=== PATIENT | male | born 1950 | race Caucasian/White ===

== ENCOUNTER 2018-01-25 13:53 | Emergency (ER) | payer MEDICARE ==
[~2018-01-25] VITALS: Ht 188 cm; Wt 113.5 kg
[2018-01-25] MEDS ORDERED: DIPHTH/TETANUS/ACEL. PERTUSSIS 0.5 ML SYR IM ONE (14:15)
[2018-01-25] MEDS ORDERED: ACETAMINOPHEN 325 MG TAB PO ONE (14:15)
== END 2018-01-25 15:03 | disposition home or self-care (01) ==
LOC: FSED 13:53
DX: S20.212A Contusion of left front wall of thorax, initial encounter (principal); W01.198A Fall on same level from slipping, tripping and stumbling with subsequent striking against other object, initial encounter; Y93.01 Activity, walking, marching and hiking; Y92.008 Other place in unspecified non-institutional (private) residence as the place of occurrence of the external cause; I10 Essential (primary) hypertension; I25.10 Atherosclerotic heart disease of native coronary artery without angina pectoris; H91.3 Deaf nonspeaking, not elsewhere classified; E78.5 Hyperlipidemia, unspecified; F32.9 Major depressive disorder, single episode, unspecified
CPT/HCPCS: 71101; 90471; 99284

== ENCOUNTER 2018-04-06 14:05 | Emergency (ER) | payer MEDICARE ==
[~2018-04-06] VITALS: Ht 188 cm; Wt 113.4 kg
--- OUTSIDE RECORDS SUMMARY | 2018-04-06 14:07 | XMS REPORT | Clinical Summary ---
Author Author [facility] Address Unknown Phone Unavailable Care Team Providers Care Agile Java Developer Name Role Phone PCP Unavailable Allergies No Known Allergies Current Medications Prescription Sig. Disp. Refills Start End Date Status Date predniSONE (DELTASONE) 50 Take 50 mg by mouth Active MG tablet daily. HYDROcodone-acetaminophen Take 1 tablet by mouth Active (NORCO 7.5-325) 7.5-325 every 6 (six) hours as mg per tablet needed for Pain. sertraline (ZOLOFT) 100 Take 200 mg by mouth Active MG tablet daily. omeprazole (PRILOSEC) 20 Take 40 mg by mouth Active MG capsule daily. aspirin 81 MG EC tablet Take 81 mg by mouth Active daily. omega-3 fatty acids-fish Take 2 g by mouth daily. Active oil 340-1,000 mg Cap per capsule Active Problems Not on file Social History Tobacco Use Types Packs/Day Years Used Date Former Smoker Alcohol Use Drinks/Week oz/Week Comments No Sex Assigned at Date Recorded Not on file Last Filed Vital Signs Not on file Plan of Treatment Not on file Results Not on fileafter 04/05/2017
--- OUTSIDE RECORDS SUMMARY | 2018-04-06 14:07 | XMS REPORT | Continuity of Care Document ---
Author Author [facility] Organization [facility] Address [address] [place] [address] Phone Unavailable Care Team Providers Care Recoil Spring Winder Name Role Phone NONSTAFF PCP Unavailable Advance Directives Directive Response Recorded Date/Time Does the patient have an advance directive? No 01/25/18 2:44pm If yes, is advance directive on file with [facility]? No 01/25/18 2:44pm If not on file with [facility] will patient provide a copy? No 01/25/18 2:44pm Do you have a Directive to Physician? No 01/25/18 2:44pm Do you have a Medical Power of Wire Stripper? No 01/25/18 2:44pm Do you have an out of hospital Do Not Resuscitate Order? No 01/25/18 2:44pm Do you have any special needs we should be aware of? No 01/25/18 2:44pm Do you have a support person here with you today? Yes 01/25/18 2:44pm Did patient receive Notice of Privacy Practices? Yes 01/25/18 2:44pm Did patient receive patient rights and responsibilities? Yes 01/25/18 2:44pm Problems No problem information available. Medications Unable to obtain medications. Social History No social history information available. Hospital Discharge Instructions No hospital discharge instruction information available. Plan of Care Discharge Date 01/25/18 3:03pm Disposition HOME, SELF-CARE Condition at Discharge Stable Instructions/Education Provided Fall Prevention RICE Therapy Prescriptions See Medication Section Referrals June Cui Additional Instructions/Education Return to the closest emergency room if you have trouble breathing. Take medication as prescribed. Fill your prescription immediately after leaving the ER. Do not drive or operate any heavy machinery while taking your pain medicine. Ice your rib for 20 minutes every 2 hours, while awake. Cough and deep breathe at least 10 times an hour while awake. Do this even if it is painful. Support the area with a pillow or your hand. This will help with the pain. Follow up with your doctor tomorrow. Functional Status No functional status information available. Allergies, Adverse Reactions, Alerts No known allergies. Immunizations No immunization information available. Vital Signs Acute Vital Signs Vital Response Date/Time Height 6 ft 2 in 01/25/2018 2:06pm Weight 250.25 lb 01/25/2018 2:06pm Body Mass Index 32.1 kg/m^2 01/25/2018 2:06pm Results No relevant diagnostic test, laboratory data and/or discharge summary information available. Procedures No procedure information available. Encounters Encounter Location Arrival/Admit Date Discharge/Depart Date Attending Provider Departed Emergency Room [facility] 01/25/18 1:53pm 3:03pm CARINA ROSA MD
[2018-04-06] MEDS ORDERED: HYDROCODONE/APAP 5MG-325MG TAB PO ONE (14:30)
[2018-04-06] MEDS ORDERED: TETANUS/DIPHTHERIA TOX ADULT 0.5 ML SYR IM ONE (14:30)
== END 2018-04-06 15:55 | disposition home or self-care (01) ==
LOC: FSED 14:05
DX: S61.411A Laceration without foreign body of right hand, initial encounter (principal); S46.811A Strain of other muscles, fascia and tendons at shoulder and upper arm level, right arm, initial encounter; W18.30XA Fall on same level, unspecified, initial encounter; Y93.89 Activity, other specified; Y92.008 Other place in unspecified non-institutional (private) residence as the place of occurrence of the external cause
CPT/HCPCS: 90471; 90714; 99284

== ENCOUNTER 2018-04-08 15:11 | Emergency (ER) | payer MEDICARE ==
[~2018-04-08] VITALS: Ht 188 cm; Wt 113.4 kg
--- OUTSIDE RECORDS SUMMARY | 2018-04-08 15:13 | XMS REPORT | Continuity of Care Document ---
Author Author [facility] Organization [facility] Address [address] [place] [place] [address] Phone Unavailable Care Team Providers Care Home Appliance Tech Name Role Phone NONSTAFF PCP Unavailable Insurance Providers Guarantor Rivera Rdz Address [address] [place] [address] Email NONE Payer [employer] Policy Number [id number] Subscriber's Name Rivera Rdz Relationship 18 Self / Same As Patient Group Name RETIRED Advance Directives Directive Response Recorded Date/Time Does the patient have an advance directive? No 01/25/18 2:44pm If yes, is advance directive on file with [facility]? No 01/25/18 2:44pm If not on file with [facility] will patient provide a copy? No 01/25/18 2:44pm Problems No problem information available. Medications Unable to obtain medications. Social History No social history information available. Hospital Discharge Instructions No hospital discharge instruction information available. Plan of Care Discharge Date 04/06/18 3:55pm Disposition HOME, SELF-CARE Condition at Discharge Stable Instructions/Education Provided Laceration Fall Prevention Sprains Wound Care (General) Forms Provided Work/School Excuse Prescriptions See Medication Section Referrals YOUR PRIMARY DOCTOR YOUNG FRIAS MD Address: [address] [place] [address] [address] [place] [address] Additional Instructions/Education CLINICAL IMPRESSION Single deep laceration to the right hand. No laceration with foreign body present. Muscle strain of the right trapezius at the shoulder. DISCHARGE INSTRUCTIONS Protect wound and keep wound area clean. Change dressing daily. Keep wounds dry. Sutures should be removed in seven days. Prescription Medications: Tylenol with Codeine Tylenol #3 (30 mg / 300 mg) : take 1-2 tablets orally every 4 hours. Dispense fifteen (15). No refill. Substitution is permissible. Bactrim DS 800 mg / 160 mg: take 1 tablet orally every 12 hours for 7 days. No refill. Substitution is permissible. Functional Status No functional status information available. Allergies, Adverse Reactions, Alerts No known allergies. Immunizations No immunization information available. Vital Signs Acute Vital Signs Vital Response Date/Time Height 6 ft 2 in 04/06/2018 2:08pm Weight 250 lb 04/06/2018 2:08pm Body Mass Index 32.1 kg/m^2 04/06/2018 2:08pm Results No relevant diagnostic test, laboratory data and/or discharge summary information available. Procedures Procedure Status Date Provider(s) TD VACC NO PRESV 7 YRS+ IM Completed 01/25/18 CARINA ROSA MD Encounters Encounter Location Arrival/Admit Date Discharge/Depart Date Attending Provider Departed Emergency Room [facility] 04/06/18 2:05pm 3:55pm NIK SCHMIDT MD Departed Emergency Room [facility] 01/25/18 1:53pm 3:03pm CARINA ROSA MD
--- OUTSIDE RECORDS SUMMARY | 2018-04-08 15:13 | XMS REPORT | Clinical Summary ---
Author Author [facility] Address Unknown Phone Unavailable Care Team Providers Care Incident Manager Name Role Phone PCP Unavailable Allergies No [...] Not on file Results Not on fileafter 04/07/2017
[2018-04-08] MEDS ORDERED: OMEPRAZOLE20 MG (15:35)
[2018-04-08] MEDS ORDERED: LASIX20 MG PO (15:35)
[2018-04-08] MEDS ORDERED: UNK ANTIDEPRESSANT (15:35)
[2018-04-08] MEDS ORDERED: FERROUS SULFAT324 MG (15:35)
[2018-04-08] MEDS ORDERED: TYLENOL WITH C1 EACH PO (15:35)
[2018-04-08] MEDS ORDERED: DIPHENHYDRAMINE HCL INJ 50 MG/ML VIAL IM ONE (16:00)
[2018-04-09] MEDS ORDERED: BACITRACIN ZINC 15 GM OINT TOP SCH (09:00)
== END 2018-04-08 16:29 | disposition home or self-care (01) ==
LOC: FSED 15:11
DX: L29.9 Pruritus, unspecified (principal); I10 Essential (primary) hypertension; E78.5 Hyperlipidemia, unspecified; I25.10 Atherosclerotic heart disease of native coronary artery without angina pectoris; H91.93 Unspecified hearing loss, bilateral; I25.2 Old myocardial infarction; K21.9 Gastro-esophageal reflux disease without esophagitis; F32.9 Major depressive disorder, single episode, unspecified; Z95.5 Presence of coronary angioplasty implant and graft; Z98.84 Bariatric surgery status; Z96.21 Cochlear implant status
CPT/HCPCS: 99283; J1200

== ENCOUNTER 2018-04-13 11:47 | Emergency (ER) | payer MEDICARE ==
[~2018-04-13] VITALS: Ht 188 cm; Wt 115.7 kg
[~2018-04-13 11:47] MED LIST: FERROUS SULFAT324 MG; LASIX20 MG PO; OMEPRAZOLE20 MG; TYLENOL WITH C1 EACH PO; UNK ANTIDEPRESSANT
== END 2018-04-13 12:30 | disposition home or self-care (01) ==
LOC: FSED 11:47
DX: Z48.02 Encounter for removal of sutures (principal); B37.2 Candidiasis of skin and nail
CPT/HCPCS: 99283

== ENCOUNTER → 2019-07-15 | Day surgery (SDC) | payer MEDICARE, OTHER ==
[~2019-07-15] MED LIST changes: +FENTANYL CITRATE/PF 100MCG/2 ML INJ ONE; -FERROUS SULFAT324 MG; +FERROUS SULFAT324 MG PO; +FISH OIL CONC1 EACH PO; +FLOMAX0.4 MG PO; +METOPROLOL SUCC25 MG PO; +MIDAZOLAM HCL 2 MG/2 ML VIAL ONE; +MULTIVITAMINS1 EAC7 PO; -OMEPRAZOLE20 MG; +OMEPRAZOLE20 MG PO; +OR PHACO EYE KIT ONE; +PREOP PHACO EYE KIT ONE; +SERTRALINE HCL100 MG PO; +SIMVASTATIN20 MG PO
--- OUTSIDE RECORDS SUMMARY | 2019-07-15 11:47 | XMS REPORT | Clinical Summary ---
Author Author [facility] Address Unknown Phone Unavailable Care Team Providers Care Architecture Analyst Name Role Phone Annabella Berry MD PCP Allergies No Known Allergies Medications End Date Status Medication Sig Dispensed Refills Start Date Active omeprazole (PriLOSEC) 20 Take 20 mg by 0 MG capsule mouth daily. Active tamsulosin (FLOMAX) 0.4 Take 0.4 mg 0 mg capsule by mouth daily. Active sertraline (ZOLOFT) 100 Take 100 mg 0 MG tablet by mouth daily. Active multivit-minerals/ferrous Take by 0 fum (MULTI VITAMIN ORAL) mouth. Active aspirin (ECOTRIN) 81 MG Take 81 mg by 0 enteric coated tablet mouth daily. Active docosahexanoic acid/epa Take by 0 (FISH OIL ORAL) mouth. 08/22/2018 ibuprofen (ADVIL,MOTRIN) Take 1 tablet 21 tablet 0 800 MG tablet (800 mg 8 total) by mouth 3 (three) times a day for 30 days. 08/02/2018 traMADol (ULTRAM) 50 mg Take 1 tablet 20 tablet 0 tablet (50 mg total) 8 by mouth every 6 (six) hours as needed for moderate pain for up to 10 days. 09/12/2018 traMADol (ULTRAM) 50 mg Take 1 tablet 60 tablet 0 tablet (50 mg total) 8 by mouth every 6 (six) hours as needed for moderate pain for up to 30 days. Status Hospital, Clinic, or Ordered Dose Route Frequency Start End Date Other Facility Date Administered Medication Ended methylPREDNISolone 40 mg IM once 07/30/20 acetate (DEPO-MEDROL) 18 8 injection 40 mgIndications: Osteoarthritis of left hip, unspecified osteoarthritis type Discontinued keTOROlac (TORadol) 30 mg IV once 07/30/20 injection 30 18 8 mgIndications: Osteoarthritis of left hip, unspecified osteoarthritis type Ended keTOROlac (TORadol) 30 mg IM once 07/30/20 injection 30 18 8 mgIndications: Osteoarthritis of left hip, unspecified osteoarthritis type Active Problems Problem Noted Date Complete tear of right rotator cuff 08/12/2018 Pain in both thighs 06/25/2018 Chronic pain of both knees 06/25/2018 Primary osteoarthritis of left hip 06/24/2018 Encounters Care Team Description Date Type Specialty Arminda Serra MA Tear of right rotator cuff, unspecified tear extent (Primary Dx) 08/16/2018 Orders Only Orthopedic Surgery Tim Andino Jr., MD 08/14/2018 Telephone Access Arminda Serra MA 08/13/2018 Telephone Orthopedic Surgery Arminda Serra MA 08/13/2018 Orders Only Orthopedic Surgery Arminda Serra MA 08/12/2018 Telephone Orthopedic Surgery Arminda Serra MA 08/12/2018 Telephone Orthopedic Surgery Tim Andino Jr., MD Osteoarthritis of left hip, unspecified osteoarthritis type (Primary Dx); Complete tear of right rotator cuff 07/30/2018 Office Visit Orthopedic Surgery Osiel Scanlon MD Contusion of right shoulder, initial encounter (Primary Dx); Contusion of left side of back, initial encounter 07/23/2018 Emergency Emergency Medicine after 07/14/2018 Family History Medical History Relation Name Comments No Known Problems Brother No Known Problems Father No Known Problems Maternal Grandfather No Known Problems Maternal Grandmother No Known Problems Mother No Known Problems Paternal Grandfather No Known Problems Paternal Grandmother No Known Problems Sister Relation Name Status Comments Brother Father Maternal Grandfather Maternal Grandmother Mother Paternal Grandfather Paternal Grandmother Sister Social History Date Tobacco Use Types Packs/Day Years Used Never Smoker Smokeless Tobacco: Never Used Drinks/Week oz/Week Comments Alcohol Use No Sex Assigned at Date Recorded Not on file Industry Job Start Date Occupation Not on file Not on file Not on file Travel End Travel History Travel Start No recent travel history available. Last Filed Vital Signs Reading Time Taken Comments Vital Sign 135/62 07/30/2018 3:44 PM CDT Blood Pressure 80 07/30/2018 3:44 PM CDT Pulse 36.7 C (98 F) 07/23/2018 1:43 PM CDT Temperature 18 07/23/2018 5:13 PM CDT Respiratory Rate 99% 07/23/2018 5:13 PM CDT Oxygen Saturation - - Inhaled Oxygen Concentration 116 kg (255 lb) 07/30/2018 3:44 PM CDT Weight 188 cm (6' 2") 07/30/2018 3:44 PM CDT Height 32.74 07/30/2018 3:44 PM CDT Body Mass Index Plan of Treatment Health Maintenance Due Date Last Done Comments COLONOSCOPY SCREENING 2000 SHINGLES VACCINES (#1) 2000 65+ PNEUMOCOCCAL VACCINE 2015 (1 of 2 - PCV13) INFLUENZA VACCINE 06/12/2019 Procedures Comments Procedure Name Priority Date/Time Associated Diagnosis XR SHOULDER 2+ VW RIGHT STAT 07/23/2018 4:45 PM CDT XR LUMBAR SPINE COMPLETE STAT 07/23/2018 4+ VW 4:45 PM CDT after 07/14/2018 Results * XR Shoulder 2+ Vw Right (07/23/2018 4:45 PM CDT) Specimen Narrative Performed At EXAM:XR SHOULDER 2VW RIGHT [facility] CLINICAL:Shoulder paininitial exam COMPARISON:None. IMPRESSION: 1.Degenerative changes in the right glenohumeral joint with small marginal osteophyte formation. 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 3.No acute osseous abnormality. [id number] Procedure Note Hm Interface, Radiology Results Incoming - 07/23/2018 4:51 PM CDT EXAM: XR SHOULDER 2 VW RIGHT CLINICAL: Shoulder pain initial exam COMPARISON: None. IMPRESSION: 1. Degenerative changes in the right glenohumeral joint with small marginal osteophyte formation. 2. 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 3. No acute osseous abnormality. [id number] Performing Organization Address City/State/Zipcode Phone Number [facility] [phone] [place] [address] * XR Lumbar Spine Complete 4+ Vw (07/23/2018 4:45 PM CDT) Specimen Narrative Performed At EXAMINATION:XR LUMBAR SPINE COMPLETE 4VW [facility] CLINICAL HISTORY:Abn xrayL S-spineDJD TECHNIQUE: AP, lateral bilateral posterior oblique, views of the lumbar spine were obtained. COMPARISON: None. IMPRESSION: There are 5 [id number] lumbar type vertebrae. There is normal lumbar lordosis. Lumbar vertebral body and intervertebral disc heights are maintained. No acute fracture or listhesis is identified. There is multilevel osteophytosis with prominent left lateral L2-L3 osteophyte. There is lower lumbar facet arthropathy. On the oblique views, there is no evidence of spondylolysis. Atherosclerosis of the abdominal aorta. [id number] Procedure Note Hm Interface, Radiology Results Incoming - 07/23/2018 4:53 PM CDT EXAMINATION: XR LUMBAR SPINE COMPLETE 4 VW CLINICAL HISTORY: Abn xray L S-spine DJD TECHNIQUE: AP, lateral bilateral posterior oblique, views of the lumbar spine were obtained. COMPARISON: None. IMPRESSION: There are 5 [id number] lumbar type vertebrae. There is normal lumbar lordosis. Lumbar vertebral body and intervertebral disc heights are maintained. No acute fracture or listhesis is identified. There is multilevel osteophytosis with prominent left lateral L2-L3 osteophyte. There is lower lumbar facet arthropathy. On the oblique views, there is no evidence of spondylolysis. Atherosclerosis of the abdominal aorta. [id number] Performing Organization Address City/State/Zipcode Phone Number [facility] [address] [place] [address] after 07/14/2018 Insurance Type Payer Benefit Subscriber ID Effective Phone Address Plan / Dates Group O [employer] CIGNA xxxxxxxxx 2017-P [employer] resent [facility] MCR ADV Advance Directives For more information, please contact: [phone] Patient Digital Analyst Explanation Type Date Recorded Advance Directives, 07/23/2018 2:54 PM Living Will and Medical Power of Fluid Dynamicist
--- OUTSIDE RECORDS SUMMARY | 2019-07-15 11:47 | XMS REPORT | Clinical Summary ---
Author Author MAR[facility] Address Unknown Phone Unavailable Care Team Providers Care Shield Cleaner Name Role Phone DavidJacques rodrigez Padmini PCP Allergies Comments Active Allergy Reactions Severity Noted Date Bee venom Bee Pollens Anaphylaxis High 12/12/2018 Bee Venom Protein (Honey Anaphylaxis High 11/22/2018 Bee) Noted when eating shellfish Iodine Anaphylaxis, High 05/28/2010 Hives Iodine And Iodide Anaphylaxis High 12/12/2018 Containing Products Shellfish Containing Anaphylaxis High 07/28/2011 Products Other reaction(s): shellfish derived Shellfish Derived 04/08/2018 Medications End Date Status Medication Sig Dispensed Refills Start Date Active sertraline (ZOLOFT) 100 Take 200 mg 0 MG tablet by mouth daily. Active omeprazole (PRILOSEC) 20 Take 40 mg by 0 MG capsule mouth daily. Active omega-3 fatty acids-fish Take 2 g by 0 oil 340-1,000 mg Cap per mouth daily. capsule Active tamsulosin (FLOMAX) 0.4 Take 0.4 mg 0 mg Cap 24 hr capsule by mouth daily. Active zolpidem (AMBIEN) 5 MG Take 5 mg by 0 tablet mouth every night as needed for Insomnia. 12/12/2018 Discontinued predniSONE (DELTASONE) 50 Take 50 mg by 0 MG tablet mouth daily. 12/12/2018 Discontinued HYDROcodone-acetaminophen Take 1 tablet 0 (NORCO 7.5-325) 7.5-325 by mouth mg per tablet every 6 (six) hours as needed for Pain. 12/20/2018 Discontinued aspirin 81 MG EC tablet Take 81 mg by 0 mouth daily. 01/18/2019 aspirin 325 MG EC tablet Take 1 tablet 28 tablet 0 (325 mg 9 total) by mouth daily for 28 days. 01/04/2019 HYDROcodone-acetaminophen Take 1 tablet 60 tablet 0 (NORCO 10-325) 10-325 mg by mouth 9 per tablet every 4 (four) hours as needed for Pain for up to 15 days. Max Daily Amount: 6 tablets Active Problems Problem Noted Date Primary osteoarthritis of left hip 12/19/2018 Status post left hip replacement 12/19/2018 Encounters Care Team Description Date Type Specialty Gabriella Adams MD ARTHROPLASTY,HIP 12/19/2018 Surgery Yocasta Smith MD 12/19/2018 Anesthesia Event Gabriella Adams MD 12/19/2018 [facility] General Internal Medicine - Encounter 12/20/2018 12/19/2018 Travel Resource, [facility]readmit Phone 12/12/2018 Hospital Pre-Admission Testing Encounter after 07/14/2018 Social History Date Tobacco Use Types Packs/Day Years Used Quit: 2007 Former Smoker Smokeless Tobacco: Never Used Alcohol Use Drinks/Week oz/Week Comments No Sex Assigned at Date Recorded Not on file Industry Job Start Date Occupation Not on file Not on file Not on file Travel End Travel History Travel Start No recent travel history available. Last Filed Vital Signs Time Taken Vital Sign Reading 12/20/2018 11:46 AM REACTOR SERVICE OPERATOR Blood Pressure 112/57 12/20/2018 11:46 AM REACTOR SERVICE OPERATOR Pulse 76 12/20/2018 11:46 AM REACTOR SERVICE OPERATOR Temperature 35.6 C (96.1 F) 12/20/2018 11:46 AM REACTOR SERVICE OPERATOR Respiratory Rate 18 12/20/2018 11:46 AM REACTOR SERVICE OPERATOR Oxygen Saturation 97% - Inhaled Oxygen - Concentration 12/19/2018 9:25 AM REACTOR SERVICE OPERATOR Weight 113.7 kg (250 lb 10.6 oz) 12/19/2018 9:25 AM REACTOR SERVICE OPERATOR Height 188 cm (6' 2") 12/19/2018 9:25 AM REACTOR SERVICE OPERATOR Body Mass Index 32.18 Plan of Treatment Not on file Implants Device Identifier Shelf Expiration Date Model / Serial / Lot Implanted Type Area Manufactur er 09/17/2023 [id number] / / [id number] Scr Low Profile 6.5x25mm [id number] Fracture/F Left: Hip ROHAN:ST - [id number] ixation MUA Implanted: Qty: 1 on 12/19/2018 by ORTHOPAEDI Gabriella Adams MD 09/17/2023 [id number] / / [id number] Scr Low Profile 6.5x25mm [id number] Fracture/F Left: Hip ROHAN:ST - [id number] ixation UMA Implanted: Qty: 1 on 12/19/2018 by Gabriella Posada MD 09/24/2023 702-04-54E / / [id number] Trident Ii Tri Clusterhole 54e Joints Left: Hip ROHAN 702-04-54e - [id number] ORTHO CAP Implanted: Qty: 1 on 12/19/2018 by Gabriella Adams MD 10/14/2023 623-00-36E / / [id number] Insrt Trident X3 0deg 36mm Joints Left: Hip ROHAN:ST 623-00-36e - [id number] UMA Implanted: Qty: 1 on 12/19/2018 by Gabriella Posada MD 10/02/2023 [id number] / / [id number] Hip Stem Accolade Ii 127d 5 - Joints Left: Hip ROHAN:ST [id number] UMA Implanted: Qty: 1 on 12/19/2018 by Gabriella Posada MD CS 11/13/2023 6570-0-136 / / [id number] Head Fem Ceramic V40 36mm Joints Left: Hip ROHAN:ST 6570-0-136 - [id number] UMA Implanted: Qty: 1 on 12/19/2018 by Gabriella Posada MD Procedures Comments Procedure Name Priority Date/Time Associated Diagnosis TRANSFUSION SERVICE 12/20/2018 REPORT - SCAN 6:01 PM REACTOR SERVICE OPERATOR HEMOGLOBIN AND HEMATOCRIT Routine 12/20/2018 5:49 AM REACTOR SERVICE OPERATOR BASIC METABOLIC PANEL (7) Routine 12/20/2018 5:49 AM REACTOR SERVICE OPERATOR XR PELVIS 1 OR 2 VIEWS STAT 12/19/2018 12:45 PM REACTOR SERVICE OPERATOR XR PELVIS 1 OR 2 VIEWS Routine 12/19/2018 11:25 AM REACTOR SERVICE OPERATOR ARTHROPLASTY,HIP 12/19/2018 Primary osteoarthritis of 10:30 AM REACTOR SERVICE OPERATOR left hip Case Notes 1 HRCASE #5 Special Needs (ROHAN ACCOLADE 2) ANESTHESIA SPINAL BLOCK Routine 12/19/2018 9:59 AM REACTOR SERVICE OPERATOR TISSUE EXAM AP Routine 12/19/2018 9:42 AM REACTOR SERVICE OPERATOR ABORH, MANUAL STAT 12/19/2018 9:16 AM REACTOR SERVICE OPERATOR TYPE AND SCREEN, Routine 12/19/2018 AUTOMATED 8:58 AM REACTOR SERVICE OPERATOR after 07/14/2018 Results * TRANSFUSION SERVICE REPORT - SCAN (12/20/2018 6:01 PM REACTOR SERVICE OPERATOR) Narrative Performed At * Hemoglobin and hematocrit (12/20/2018 5:49 AM REACTOR SERVICE OPERATOR) Hemoglobin 9.3 (L) 13.7 - 17.5 GM/DL [facility] Hematocrit 30.7 (L) 40.1 - 51.0 % [facility] Specimen Blood Performing Organization Address City/State/Zipcode Phone Number [facility] [address] [place] [address] MED[facility] * Basic metabolic panel (12/20/2018 5:49 AM REACTOR SERVICE OPERATOR) Sodium 136 136 - 145 meq/L [facility] Potassium 3.8 3.5 - 5.1 meq/L [facility] Chloride 106 98 - 107 meq/L [facility] CO2 25 22 - 29 meq/L [facility] BUN 13 7 - 21 mg/dL [facility] Creatinine 0.73 0.57 - 1.25 mg/dL [facility] Glucose 98 70 - 105 mg/dL [facility] Calcium 8.7 8.4 - 10.2 mg/dL [facility] EGFR 107Comment: ESTIMATED GFR IS mL/min/1.[address] [facility] NOT ACCURATE CREATININE [facility] CLEARANCE IN PREDICTING GLOMERULAR FILTRATION RATE. ESTIMATED GFR IS NOT APPLICABLE FOR DIALYSIS PATIENTS. Specimen Blood Performing Organization Address City/State/Zipcode Phone Number [facility] [address] [place] [address] MEDICAL CENTER * XR pelvis 1 or 2 views (12/19/2018 12:45 PM REACTOR SERVICE OPERATOR) Only the most recent of 2 results within the time period is included. Specimen Narrative Performed At FINAL REPORT GE RIS AP PELVIS HISTORY: Left hip pain, status post left hip arthroplasty COMPARISON: 1046 hours on 12/19/2018 FINDINGS: Single portable image of the low pelvis shows postoperative changes consistent with left hip total arthroplasty. Arthroplasty alignment appears anatomic on this single view. No periprosthetic fracture is identified. Signed: Chuckie Sandra MD Report Verified Date/Time:12/19/2018 13:31:13 Reading Location: [facility] Radiology Reading Room Procedure Note Interface, External Ris In - 12/19/2018 1:33 PM REACTOR SERVICE OPERATOR FINAL REPORT AP PELVIS HISTORY: Left hip pain, status post left hip arthroplasty COMPARISON: 1046 hours on 12/19/2018 FINDINGS: Single portable image of the low pelvis shows postoperative changes consistent with left hip total arthroplasty. Arthroplasty alignment appears anatomic on this single view. No periprosthetic fracture is identified. Signed: Chuckie Sandra MD Report Verified Date/Time: 12/19/2018 13:31:13 Reading Location: [facility] Radiology Reading Room Performing Organization Address City/State/Zipcode Phone Number [facility] * ANESTHESIA SPINAL BLOCK (12/19/2018 9:59 AM REACTOR SERVICE OPERATOR) Narrative Performed At Madhavi Garcia MD 12/19/2018 10:00 AM Spinal Block Patient location during procedure: pre-procedure Start time: 12/19/2018 9:51 AM End time: 12/19/2018 9:55 AM Procedure Indication: at surgeon's request and primary anesthetic Staffing Anesthesiologist: Jonn Sotelo MD Resident/BLANKET CUTTING MACHINE OPERATOR: Madhavi Garcia MD Preanesthetic Checklist Completed: patient identified, pre-op evaluation, timeout performed, IV checked, risks and benefits discussed, monitors and equipment checked, anesthesia consent given, prep site dry prior to draping and maximum sterile barriers were used: cap, mask, sterile gown, sterile gloves, and large sterile sheet Prep Prep: chlorhexidine gluconate and isopropyl alcohol Procedures: sterile gloves, surgical mask, surgical hat, sterile technique and prep and sterile drape applied Spinal Block Patient position: sitting Patient monitoring: EKG, HR, BP and SpO2 Approach: midlineNo pictures available Level:L4-5 Injection technique: single-shot landmark technique and landmark technique Needle Needle type: Gonzalez. Needle gauge: 25 G Used introducer Assessment Sensory level: T10 Events: cerebrospinal fluid patient tolerated the procedure well and patient had no immediate complications Additional Notes Patient tolerated procedure well. Dr. Sotelo present throughout procedure. Procedure Note Madhavi Garcia MD - 12/19/2018 9:59 AM REACTOR SERVICE OPERATOR Spinal Block Patient location during procedure: pre-procedure Start time: 12/19/2018 9:51 AM End time: 12/19/2018 9:55 AM Procedure Indication: at surgeon's request and primary anesthetic Staffing Anesthesiologist: Jonn Sotelo MD Resident/BLANKET CUTTING MACHINE OPERATOR: Madhavi Garcia MD Preanesthetic Checklist Completed: patient identified, pre-op evaluation, timeout performed, IV checked, risks and benefits discussed, monitors and equipment checked, anesthesia consent given, prep site dry prior to draping and maximum sterile barriers were used: cap, mask, sterile gown, sterile gloves, and large sterile sheet Prep Prep: chlorhexidine gluconate and isopropyl alcohol Procedures: sterile gloves, surgical mask, surgical hat, sterile technique and prep and sterile drape applied Spinal Block Patient position: sitting Patient monitoring: EKG, HR, BP and SpO2 Approach: midlineNo pictures available Level: L4-5 Injection technique: single-shot landmark technique and landmark technique Needle Needle type: Gonzalez. Needle gauge: 25 G Used introducer Assessment Sensory level: T10 Events: cerebrospinal fluid patient tolerated the procedure well and patient had no immediate complications Additional Notes Patient tolerated procedure well. Dr. Sotelo present throughout procedure. * Tissue Exam (12/19/2018 9:42 AM REACTOR SERVICE OPERATOR) Case Report Surgical Pathology [facility] Case: [id number] Authorizing Provider:Gabriella Adams, Collected: 12/19/2018 0942 Ordering Location: [facility] PERIOPERATIVE Received: 12/19/2018 1154 SERVICES Pathologist: Kathya Elmore MD Specimen:Femoral Head,Left Hip DIAGNOSIS FEMORAL HEAD, LEFT HIP [facility] ARTHROPLASTY [facility] - DEGENERATIVE JOINT DISEASE (OSTEOARTHRITIS) - REACTIVE SYNOVIUM Signing Pathologist Direct Phone Line: [phone] CPT Code(s) 32212 X 1; 44167 X 1 [facility] CLINICAL HISTORY Primary osteoarthritis of left [facility] hip [facility] SPECIMEN SOURCE Left femoral head [facility] GROSS DESCRIPTION The specimen is received in a [facility] fluidless container labeled [facility] with patient's information labeled "left femoral head" and consists of a carty-red spherical femoral head measuring 4 x 4 x 3.5 cm with a sharply amputated base. The articular surface has distinct osteophyte formation around the periphery. Section code: A1 and A2, bone submitted for decalcification; A3, soft tissue and bone submitted for decalcification. CG/pl MICROSCOPIC DESCRIPTION Performed. [facility] Professional component [facility] was performed at Center, Department of [facility] Pathology, [address] [place] [id number], Specimen Tissue - Femoral Head,Left Hip Performing Organization Address City/[facility]/[place] [address] [facility] * ABORH, manual (12/19/2018 9:16 AM REACTOR SERVICE OPERATOR) ABO Grouping A [facility] Rh Factor NEG [facility] Specimen Blood Performing Organization Address City/[facility]/Zipcode Phone Number [place] [phone] [facility] * Type and screen, automated (12/19/2018 8:58 AM REACTOR SERVICE OPERATOR) ABO/RH AUTOMATED (BEAKER) A NEGATIVE [facility] Ab Scrn NEGATIVE [facility] Specimen Blood Performing Organization Address City/State/Zipcode Phone Number [facility] [address] [place] [address] MEDICAL CENTER after 07/14/2018 Insurance Payer Benefit Subscriber ID Type Phone Address Plan / Group [employer] xxxxxxxx Maps O ALL Contracted Advance Directives For more information, please contact: [place] [address] [place], [place] [phone] Date Inactivated Comments Code Status Date Activated Full Code 12/19/2018 8:48 AM This code status was determined by: Patient
--- OUTSIDE RECORDS SUMMARY | 2019-07-15 11:47 | XMS REPORT ---
Author Author [facility] Address Unknown Phone Unavailable Care Team Providers Care Primer Press Operator Name Role Phone NIURKA RICCI Unavailable Unavailable Payers Payer Name Policy Type Policy Number Effective Date Expiration Date Problems This patient has no known problems. Allergies, Adverse Reactions, Alerts Allergy Name Allergy Type Status Severity Reaction(s) Onset Date Inactive Date Treating Clinician Comments Shellfish DA Active SV 2011-07-28 00:00:00 Medications This patient has no known medications. Results Test Description Test Time Test Comments Text Results Atomic Results Result Comments TISSUE EXAM 2018 09:54:00 Surgical Pathology Report Case: [id number] Authorizing Provider: Gabriella Ricci, Collected: 12/19/2018 0942 Ordering Location: [facility] PERIOPERATIVE Received: 12/19/2018 1154 SERVICES Pathologist: Kathya Elmore MD Specimen: Femoral Head,Left Hip FEMORAL HEAD, LEFT HIP ARTHROPLASTY - DEGENERATIVE JOINT DISEASE (OSTEOARTHRITIS) - REACTIVE SYNOVIUM Signing Pathologist Direct Phone Line: [phone] signed by Kathya Elmore MD on 2018 at 9:54 [id number] X 1; [id number] X 1Primary osteoarthritis of left hipLeft femoral headThe specimen is received in a fluidless container labeled with patient's information labeled "left femoral head" and consists of a carty-red spherical femoral head measuring 4 x 4 x 3.5 cm with a sharply amputated base. The articular surface has distinct osteophyte formation around the periphery. Section code: A1 and A2, bone submitted for decalcification; A3, soft tissue and bone submitted for decalcification. CG/pl Performed.[facility], Department of Pathology, [address] [place] [address], [place] [address], BASIC METABOLIC PANEL 2018-12-20 06:46:00 SODIUM (BEAKER) (test jied=690) 136 meq/L 136-145 POTASSIUM (BEAKER) (test bjan=595) 3.8 meq/L 3.5-5.1 CHLORIDE (BEAKER) (test ishn=801) 106 meq/L 98-107 CO2 (BEAKER) (test utjf=872) 25 meq/L 22-29 BLOOD UREA NITROGEN (BEAKER) (test nken=879) 13 mg/dL 7-21 CREATININE (BEAKER) (test hmnw=489) 0.73 mg/dL 0.57-1.25 GLUCOSE RANDOM (BEAKER) (test lyii=709) 98 mg/dL 70-105 CALCIUM (BEAKER) (test hupr=547) 8.7 mg/dL 8.4-10.2 EGFR (BEAKER) (test nxaw=4788) 107 mL/min/1.73 sq m ESTIMATED GFR IS NOT ACCURATE CREATININE CLEARANCE IN PREDICTING GLOMERULAR FILTRATION RATE. ESTIMATED GFR IS NOT APPLICABLE FOR DIALYSIS PATIENTS. HEMOGLOBIN AND [id number] 06:32:00* Test Item Value Reference Range Comments HEMOGLOBIN (BEAKER) (test nltv=303) 9.3 GM/DL 13.7-17.5 HEMATOCRIT (BEAKER) (test mfid=510) 30.7 % 40.1-51.0 RAD, PELVIS, 1 OR 2 [id number] 13:31:00Reason for exam:->post op total hipShould this be performed at the bedside?->YesFINAL REPORT AP PELVIS HISTORY: Left hip pain, status post left hip arthroplasty COMPARISON: 1046 hours on 12/19/2018 FINDINGS: Single portable image of the low pelvis shows postoperative changes consistent with left hip total arthroplasty. Arthroplasty alignment appears anatomic on this single view. No periprosthetic fracture is identified. Signed: Chuckie Sandra Verified Date/Time: 12/19/2018 13:31:13 Reading Location: [facility] Radiology Reading Room , PELVIS, 1 OR 2 [id number] 11:33:00Reason for exam:->left hip arthroplastyFINAL REPORT Pelvis. HISTORY: Left hip arthroplasty. COMPARISON STUDY: None available. FINDINGS: Frontal view of the pelvis demonstrates a reamer in the left femur and left acetabular cup in place. No evidence of frac ture or malalignment is seen. Signed: Erick Wells MDReport Verified Date/Kaleb e: 12/19/2018 11:33:28 Reading Location: [facility] Radiology Reading Room
[2019-07-15 15:15] VITALS: BP 140/89
== END | disposition home or self-care (01) ==
LOC: OR 11:36
PROVIDERS: ATTEND Ophthalmology
DX: H25.11 Age-related nuclear cataract, right eye (principal); G47.33 Obstructive sleep apnea (adult) (pediatric); B19.20 Unspecified viral hepatitis C without hepatic coma; I25.10 Atherosclerotic heart disease of native coronary artery without angina pectoris; Z91.013 Allergy to seafood; Z95.0 Presence of cardiac pacemaker
CPT/HCPCS: 66984; J2250; J3010; V2632

== ENCOUNTER → 2019-07-29 | Day surgery (SDC) | payer OTHER ==
[2019-07-22 15:26] LABS: BASOPHILS # (AUTO) 0.1 (0.0-0.1); BASOPHILS % 0.7 % (0.0-1.0); EOSINOPHILS # (AUTO) 0.6 (0.0-0.4); EOSINOPHILS % 4.2 % (0.0-6.0); HEMATOCRIT 37.7 % (38.2-49.6); HEMOGLOBIN 11.8 g/dL (14.0-18.0); LYMPHOCYTES % 31.1 % (18.0-39.1); MEAN CORPUSCULAR HEMOGLOBIN 20.9 pg (28-32); MEAN CORPUSCULAR HGB CONC 31.3 g/dL (31-35); MEAN CORPUSCULAR VOLUME 66.8 fL (81-99); MONOCYTES # (AUTO) 1.1 (0.2-0.8); MONOCYTES % 8.1 % (4.4-11.3); NEUTROPHILS # (AUTO) 7.2 (2.1-6.9); NEUTROPHILS % 55.6 % (38.7-80.0); PLATELET COUNT 263 x10e3/uL (140-360); RED BLOOD COUNT 5.64 x10e6/uL (4.3-5.7); RED CELL DISTRIBUTION WIDTH 18.5 % (11.7-14.4)
--- OUTSIDE RECORDS SUMMARY | 2019-07-29 10:13 | XMS REPORT | Clinical Summary ---
Author Author [facility] Address Unknown Phone Unavailable Care Team Providers Care Director Of Supply Chain Name Role Phone Annabella Berry MD PCP [...] rotator cuff 07/30/2018 Office Visit Orthopedic Surgery after 07/28/2018 Family History Medical History Relation Name Comments [...] Pressure 80 07/30/2018 3:44 PM CDT Pulse - - Temperature - - Respiratory Rate - - Oxygen Saturation - - Inhaled Oxygen Concentration 116 kg (255 lb) 07/30/2018 3:44 PM CDT Weight 188 cm (6' 2") 07/30/2018 3:44 PM CDT Height 32.74 07/30/2018 3:44 PM CDT Body Mass Index Plan of Treatment Health Maintenance Due Date Last Done Comments COLONOSCOPY SCREENING 2000 SHINGLES VACCINES (#1) 2000 65+ PNEUMOCOCCAL VACCINE 2015 (1 of 2 - PCV13) INFLUENZA VACCINE 06/12/2019 Results Not on fileafter 07/28/2018 Insurance Type Payer Benefit Subscriber ID Effective Phone Address Plan / Dates Group HMO [employer] CIGNA xxxxxxxxx 2017-P [facility] Advance Directives For more information, please contact: [phone] Patient Painter Rough Explanation Type Date Recorded Advance Directives, 07/23/2018 2:54 PM Living Will and Medical Power of Au Pair
--- OUTSIDE RECORDS SUMMARY | 2019-07-29 10:13 | XMS REPORT | Clinical Summary ---
Author Author MARIETTA GeoGRAFIEastern Idaho Regional Medical CenterBuscapé [facility] HospitalUCAN[facility] Address Unknown Phone Unavailable Care Team Providers Care Stubber Name Role Phone DavidJacques rodrigez Padmini PCP [...] 12/19/2018 Anesthesia Event Gabriella Adams MD 12/19/2018 [facility] General Internal Medicine - Encounter 12/20/2018 12/19/2018 [facility] 12/12/2018 Hospital Pre-Admission Testing Encounter after 07/28/2018 Social History Date Tobacco Use Types Packs/Day [...] Taken Vital Sign Reading 12/20/2018 11:46 AM DIRECTOR OF PUBLIC WORKS Blood Pressure 112/57 12/20/2018 11:46 AM [employer]OR OF PUBLIC WORKS Pulse 76 12/20/2018 11:46 AM DIRECTOR OF PUBLIC WORKS Temperature 35.6 C (96.1 F) 12/20/2018 11:46 AM DIRECTOR OF PUBLIC WORKS Respiratory Rate 18 12/20/2018 11:46 AM DIRECTOR OF PUBLIC WORKS Oxygen Saturation 97% - Inhaled Oxygen - Concentration 12/19/2018 9:25 AM DIRECTOR OF PUBLIC WORKS Weight 113.7 kg (250 lb 10.6 oz) 12/19/2018 9:25 AM DIRECTOR OF PUBLIC WORKS Height 188 cm (6' 2") 12/19/2018 9:25 AM DIRECTOR OF PUBLIC WORKS Body Mass Index 32.18 Plan of Treatment Not on file Implants Device Identifier Shelf Expiration Date Model / Serial / Lot Implanted Type Area Manufactur er 09/17/2023 [id number] / / [id number] Scr Low Profile 6.5x25mm [id number] Fracture/F Left: Hip ROHAN:ST - [id number] ixation UMA Implanted: Qty: 1 on 12/19/2018 by ORTHOPAEDI Gabriella Adams MD 09/17/2023 [id number] / / [id number] Scr Low Profile 6.5x25mm [id number] Fracture/F Left: Hip ROHAN:ST - [id number] ixation UMA Implanted: Qty: 1 on 12/19/2018 by Gabriella Posada MD 09/24/2023 702-04-54E / / [id number] Trident Ii Tri Clusterhole 54e Joints Left: Hip ROHAN 702-04-54e - [id number] ORTHO CAP Implanted: Qty: 1 on 12/19/2018 by Gabriella Adams MD 10/14/2023 623-00-36E / / [id number] Insrt Trident X3 0deg 36mm Joints Left: Hip ROHAN:ST 623-00-36e - [id number] UMA Implanted: Qty: 1 on 12/19/2018 by Gabriella Posada MD 10/02/2023 [id number] / / [id number] Hip Stem Accolade Ii 127d 5 - Joints Left: Hip ROHAN:ST [id number] UMA Implanted: Qty: 1 on 12/19/2018 by Gabriella Posada MD CS 11/13/2023 6570-0-136 / / [id number] Head Fem Ceramic V40 36mm Joints Left: Hip ROHAN:ST 6570-0-136 - [id number] UAM Implanted: Qty: 1 on 12/19/2018 by Gabriella Posada MD Procedures Comments Procedure Name Priority Date/Time Associated Diagnosis TRANSFUSION SERVICE 12/20/2018 REPORT - SCAN 6:01 PM [employer]OR OF PUBLIC WORKS HEMOGLOBIN AND HEMATOCRIT Routine 12/20/2018 5:49 AM DIRECTOR OF PUBLIC WORKS BASIC METABOLIC PANEL (7) Routine 12/20/2018 5:49 AM [employer]OR OF PUBLIC WORKS XR PELVIS 1 OR 2 VIEWS STAT 12/19/2018 12:45 PM [employer]OR OF PUBLIC WORKS XR PELVIS 1 OR 2 VIEWS Routine 12/19/2018 11:25 AM [employer]OR OF PUBLIC WORKS ARTHROPLASTY,HIP 12/19/2018 Primary osteoarthritis of 10:30 AM DIRECTOR OF PUBLIC WORKS left hip Case Notes 1 HRCASE #5 Special Needs (ROHAN ACCOLADE 2) ANESTHESIA SPINAL BLOCK Routine 12/19/2018 9:59 AM DIRECTOR OF PUBLIC WORKS TISSUE EXAM AP Routine 12/19/2018 9:42 AM DIRECTOR OF PUBLIC WORKS ABORH, MANUAL STAT 12/19/2018 9:16 AM DIRECTOR OF PUBLIC WORKS TYPE AND SCREEN, Routine 12/19/2018 AUTOMATED 8:58 AM DIRECTOR OF PUBLIC WORKS after 07/28/2018 Results * TRANSFUSION SERVICE REPORT - SCAN (12/20/2018 6:01 PM DIRECTOR OF PUBLIC WORKS) Narrative Performed At * Hemoglobin and hematocrit (12/20/2018 5:49 AM DIRECTOR OF PUBLIC WORKS) Hemoglobin 9.3 (L) 13.7 - 17.5 GM/DL [facility] Hematocrit 30.7 (L) 40.1 - 51.0 % [facility] Specimen Blood Performing Organization Address City/State/Zipcode Phone Number [facility] [address] [place] [address] MED[facility] * Basic metabolic panel (12/20/2018 5:49 AM DIRECTOR OF PUBLIC WORKS) Sodium 136 136 - 145 meq/L [facility] Potassium 3.8 3.5 - 5.1 meq/L [facility] Chloride 106 98 - 107 meq/L [facility] CO2 25 22 - 29 meq/L [facility] BUN 13 7 - 21 mg/dL [facility] Creatinine 0.73 0.57 - 1.25 mg/dL [facility] Glucose 98 70 - 105 mg/dL [facility] Calcium 8.7 8.4 - 10.2 mg/dL [facility] EGFR 107Comment: ESTIMATED GFR IS mL/min/1.[address] [facility] NOT ACCURATE CREATININE [facility] CLEARANCE IN PREDICTING GLOMERULAR FILTRATION RATE. ESTIMATED GFR IS NOT APPLICABLE FOR DIALYSIS PATIENTS. Specimen Blood Performing Organization Address City/State/Zipcode Phone Number [facility] [address] [place] [address] MEDICAL CENTER * XR pelvis 1 or 2 views (12/19/2018 12:45 PM DIRECTOR OF PUBLIC WORKS) Only the most recent of 2 results [...] MD Report Verified Date/Time:12/19/2018 13:31:13 Reading Location: [facility] Radiology Reading Room Procedure Note Interface, External Ris In - 12/19/2018 1:33 PM DIRECTOR OF PUBLIC WORKS FINAL REPORT AP PELVIS HISTORY: Left hip pain, status post left hip arthroplasty COMPARISON: 1046 hours on 12/19/2018 FINDINGS: Single portable image of the low pelvis shows postoperative changes consistent with left hip total arthroplasty. Arthroplasty alignment appears anatomic on this single view. No periprosthetic fracture is identified. Signed: Chuckie Sandra MD Report Verified Date/Time: 12/19/2018 13:31:13 Reading Location: [facility] Radiology Reading Room Performing Organization Address City/State/Zipcode Phone Number [facility] * ANESTHESIA SPINAL BLOCK (12/19/2018 9:59 AM DIRECTOR OF PUBLIC WORKS) Narrative Performed At Madhavi Garcia MD 12/19/2018 10:00 AM Spinal Block Patient location during procedure: pre-procedure Start time: 12/19/2018 9:51 AM End time: 12/19/2018 9:55 AM Procedure Indication: at surgeon's request and primary anesthetic Staffing Anesthesiologist: Jonn Sotelo MD Resident/CELL PLASTERER: Madhavi Garcia MD Preanesthetic Checklist Completed: patient [...] Madhavi Garcia MD - 12/19/2018 9:59 AM DIRECTOR OF PUBLIC WORKS Spinal Block Patient location during procedure: pre-procedure Start time: 12/19/2018 9:51 AM End time: 12/19/2018 9:55 AM Procedure Indication: at surgeon's request and primary anesthetic Staffing Anesthesiologist: Jonn Sotelo MD Resident/CELL PLASTERER: Madhavi Garcia MD Preanesthetic Checklist Completed: patient [...] procedure. * Tissue Exam (12/19/2018 9:42 AM DIRECTOR OF PUBLIC WORKS) Case Report Surgical Pathology [facility] Case: [id number] Authorizing Provider:Gabriella Adams, Collected: 12/19/2018 0942 Ordering Location: [facility] PERIOPERATIVE Received: 12/19/2018 1154 SERVICES Pathologist: Kathya Elmore MD Specimen:Femoral Head,Left Hip DIAGNOSIS FEMORAL HEAD, LEFT HIP [facility] ARTHROPLASTY [facility] - DEGENERATIVE JOINT DISEASE (OSTEOARTHRITIS) - REACTIVE SYNOVIUM Signing Pathologist Direct Phone Line: [phone] CPT Code(s) 40415 X 1; 35765 X 1 [facility] CLINICAL HISTORY Primary osteoarthritis of left [facility] hip [facility] SPECIMEN SOURCE Left femoral head [facility] GROSS DESCRIPTION The specimen is received in a [facility] fluidless container labeled [facility] with patient's information labeled "left femoral head" and consists of a carty-red spherical femoral head measuring 4 x 4 x 3.5 cm with a sharply amputated base. The articular surface has distinct osteophyte formation around the periphery. Section code: A1 and A2, bone submitted for decalcification; A3, soft tissue and bone submitted for decalcification. CG/pl MICROSCOPIC DESCRIPTION Performed. [facility] Professional component [facility] was performed at Center, Department of [facility] Pathology, [address] [place] [id number], Specimen Tissue - Femoral Head,Left Hip Performing Organization Address City/[facility]/[place] [address] [facility] * ABORH, manual (12/19/2018 9:16 AM DIRECTOR OF PUBLIC WORKS) ABO Grouping A [facility] Rh Factor NEG [facility] Specimen Blood Performing Organization Address City/[facility]/Zipcode Phone Number [place] [phone] [facility] * Type and screen, automated (12/19/2018 8:58 AM DIRECTOR OF PUBLIC WORKS) ABO/RH AUTOMATED (BEAKER) A NEGATIVE [facility] Ab Scrn NEGATIVE [facility] Specimen Blood Performing Organization Address City/State/Zipcode Phone Number [facility] [address] [place] [address] MEDICAL CENTER after 07/28/2018 Insurance Payer Benefit Subscriber ID Type Phone Address Plan / Group [employer] xxxxxxxx Maps O ALL Contracted Advance Directives For more information, please contact: [place] [address] [place], [place] [id number] Date Inactivated Comments Code Status Date Activated Full Code 12/19/2018 8:48 AM This code status was determined by: Patient
[2019-07-29 14:45] VITALS: BP 158/80
== END | disposition home or self-care (01) ==
LOC: OR 09:56
PROVIDERS: ATTEND Ophthalmology
DX: H25.12 Age-related nuclear cataract, left eye (principal); G47.33 Obstructive sleep apnea (adult) (pediatric); I25.10 Atherosclerotic heart disease of native coronary artery without angina pectoris; F32.9 Major depressive disorder, single episode, unspecified; F43.10 Post-traumatic stress disorder, unspecified; Z01.812 Encounter for preprocedural laboratory examination; Z95.0 Presence of cardiac pacemaker; Z95.5 Presence of coronary angioplasty implant and graft
CPT/HCPCS: 36415; 66984; 85025; J2250; J3010; V2632

== ENCOUNTER 2020-01-30 17:36 | Inpatient (IN) | payer MEDICARE, OTHER ==
[~2020-01-30] VITALS: Ht 188 cm; Wt 114.5 kg
[~2020-01-30 17:36] MED LIST changes: -FENTANYL CITRATE/PF 100MCG/2 ML INJ ONE; -MIDAZOLAM HCL 2 MG/2 ML VIAL ONE; -OR PHACO EYE KIT ONE; -PREOP PHACO EYE KIT ONE
--- NOTE | 2020-01-30 19:01 | Diagnostic Imaging Report ---
EXAM: CXR 1 [facility] DATE: 01/30/2020 12:00 AM INDICATION: ^cough sob ^[id number] ^[id number] COMPARISON: None FINDINGS: Lines and tubes: Implanted cardiac device on the left with transvenous leads extending to the right atrium and right ventricle. Heart size normal. No focal pulmonary opacity, pleural effusion or pneumothorax. Upper abdomen unremarkable. There are healed rib fractures noted on the left. IMPRESSION: No evidence for acute disease. Signed by: Dr. Emmett Hand M.D. on 01/30/2020 6:58 PM
[2020-01-30] MEDS ORDERED: CEFTRIAXONE SOD 1 GM VIAL IV ONE (19:30)
[2020-01-30] MEDS ORDERED: ASPIRIN 325 MG TAB PO ONE (19:30)
[2020-01-30] MEDS ORDERED: CEFTRIAXONE SOD 1 GM/NS 50 ML 50 ML IV ONE (19:35)
[2020-01-30] MEDS ORDERED: CEFTRIAXONE SOD 1 GM VIAL IV SCH (19:45)
[2020-01-30] MEDS ORDERED: ASPIRIN 81 MG CHEW TAB PO ONE (19:45)
[2020-01-30] MEDS ORDERED: CEFTRIAXONE SOD 1 GM/NS 50 ML 50 ML IV NR (19:50)
[2020-01-30] MEDS: CEFTRIAXONE SOD 1 GM/NS 50 ML 50 ML IV SCH (20:24)
--- NOTE | 2020-01-30 21:45 | NUR ---
RECEIVED PATIENT TRANSFER FROM [facility] BY EMS. PATIENT AMBULATED TO BED, STEADY GAIT NOTED. TELE MONITOR #4 APPLIED. PATIENT A&OX4. NO PAIN REPORTED, BUT PATIENT REPORTS MILD MUSCLE SORENESS TO MEDIAL CHEST, REPORTS HE BELIEVES IT IS FROM COUGHING. LUNG SOUNDS CLEAR. BOWEL SOUNDS ACTIVE. LAST BM TODAY. PEDAL PULSES PALPABLE. NO EDEMA NOTED. SKIN INTACT. R AC IV ASYMPTOMATIC, INTACT, AND PATENT, DRESSING C/D/I. ORIENTED PATIENT TO ROOM, CALL LIGHT SYSTEM, AND POLICIES, PATIENT VERBALIZED UNDERSTANDING OF CURRENT VISITOR POLICY. BED LOCKED IN LOWEST POSITION, SIDE RAILS UPX2, CALL LIGHT IN REACH.
[2020-01-30 23:00] VITALS: BP 140/66
[2020-01-30 23:07] VITALS: BP 140/66
[2020-01-31] VITALS (8 sets, daily range): BP systolic 125–148; BP diastolic 65–82
[2020-01-31] MEDS: ALBUTEROL/IPRATROPIUM 3 ML NEB NEB SCH ×2 (00:15→20:45)
[2020-01-31 04:11] LABS: CREATINE KINASE 105 IU/L (30-200)
--- NOTE | 2020-01-31 07:10 | NUR ---
RCD PT AT BED PT IS ALERT AND ORIENTED PT RESTING ON BED IV PATENT BY SALINE FLUSH GETTING O2 3L BY NC BED LOW AND LOCKED CALL LIGHT IN REACH
--- NOTE | 2020-01-31 11:51 | NUR ---
PT REQUESTED TO HOME MEDS PAGED AND TALKED THIERNO MATTSON SHE SAID THE ONCDMITRI BULL WILL CALL BACK
[2020-01-31 12:42] LABS: CREATINE KINASE MB 2.2 ng/mL (0-5.0)
[2020-01-31] MEDS: PANTOPRAZOLE SOD 40 MG TABEC PO SCH (16:30)
[2020-01-31] MEDS ORDERED: AZITHROMYCIN 500MG/NS 250 ML 250 ML IV SCH (16:30)
[2020-01-31] MEDS ORDERED: AZITHROMYCIN 500MG/NS 250 ML 250 ML IV ONE (16:30)
[2020-01-31] MEDS ORDERED: SODIUM CHLORIDE 0.9% 250ML 250 ML ONE (16:50)
[2020-01-31 16:59] LABS: BASOPHILS # (AUTO) 0.1 (0.0-0.1); BASOPHILS % 0.6 % (0.0-1.0); EOSINOPHILS # (AUTO) 0.4 (0.0-0.4); EOSINOPHILS % 3.4 % (0.0-6.0); HEMOGLOBIN 11.3 g/dL (14.0-18.0); LYMPHOCYTES # (AUTO) 2.9 (1.0-3.2); LYMPHOCYTES % 25.9 % (18.0-39.1); MEAN CORPUSCULAR HEMOGLOBIN 20.5 pg (28-32); MEAN CORPUSCULAR HGB CONC 31.4 g/dL (31-35); MEAN CORPUSCULAR VOLUME 65.5 fL (81-99); MONOCYTES % 8.8 % (4.4-11.3); NEUTROPHILS # (AUTO) 6.9 (2.1-6.9); NEUTROPHILS % 60.9 % (38.7-80.0); PLATELET COUNT 197 x10e3/uL (140-360); RED CELL DISTRIBUTION WIDTH 18.8 % (11.7-14.4)
[2020-01-31] MEDS: METOPROLOL SUCCINATE 25 MG TAB XL PO SCH (17:00)
[2020-01-31 17:04] LABS: ALANINE AMINOTRANSFERASE 69 IU/L (0-55); ALBUMIN 4.1 g/dL (3.5-5.0); ALBUMIN/GLOBULIN RATIO 1.2 (0.8-2.0); ALKALINE PHOSPHATASE 48 IU/L (40-150); ANION GAP 9.9 mmol/L (8-16); BLOOD UREA NITROGEN 17 mg/dL (7-26); BUN/CREATININE RATIO 22 (6-25); CALCIUM 9.1 mg/dL (8.4-10.2); CARBON DIOXIDE 26 mmol/L (22-29); CHLORIDE 105 mmol/L (98-107); CREATININE, SERUM 0.79 mg/dL (0.72-1.25); EST GLOMERULAR FILTRATION RATE > 60 ML/MIN (60-); GLUCOSE 98 mg/dL (74-118); MAGNESIUM 2.2 MG/DL (1.3-2.1); POTASSIUM 3.9 mmol/L (3.5-5.1); SODIUM 137 mmol/L (136-145)
[2020-01-31 17:24] LABS: THYROID STIMULATING HORMONE 0.958 uIU/mL (0.350-4.940)
[2020-01-31] MEDS: MINERAL OIL/PETROLAT/GLYCERI 2OZ CRM TOP SCH ×2 (18:00→20:36)
[2020-01-31 19:28] LABS: BILIRUBIN,URINE NEGATIVE (NEGATIVE); CLARITY,URINE CLEAR (CLEAR); COLOR,URINE YELLOW (YELLOW); KETONES,URINE NEGATIVE (NEGATIVE); LEUKOCYTE ESTERASE ,URINE NEGATIVE (NEGATIVE); NITRITE,URINE NEGATIVE (NEGATIVE); PROTEIN,URINE DIPSTICK NEGATIVE (NEGATIVE); URINE UROBILINOGEN 0.2 mg/dL (0.2 - 1)
[2020-01-31 19:29] LABS: BACTERIA,URINE FEW /HPF; EPITHELIAL CELLS,URINE FEW /LPF
[2020-01-31] MEDS ORDERED: AMBIEN10 MG PO (20:36)
[2020-01-31] MEDS: SERTRALINE HCL 100 MG TAB PO SCH (20:36)
[2020-01-31] MEDS: SIMVASTATIN 20 MG TAB PO SCH (20:36)
[2020-01-31] MEDS: ZOLPIDEM TARTRATE 10 MG TAB PO PRN (20:49)
[2020-02-01] VITALS (8 sets, daily range): BP systolic 113–144; BP diastolic 63–79
[2020-02-01] MEDS: ALBUTEROL/IPRATROPIUM 3 ML NEB NEB SCH ×5 (05:05→20:40)
[2020-02-01 05:41] LABS: BASOPHILS # (AUTO) 0.1 (0.0-0.1); BASOPHILS % 0.8 % (0.0-1.0); EOSINOPHILS # (AUTO) 0.5 (0.0-0.4); EOSINOPHILS % 3.5 % (0.0-6.0); HEMATOCRIT 39.5 % (38.2-49.6); HEMOGLOBIN 12.2 g/dL (14.0-18.0); LYMPHOCYTES % 29.2 % (18.0-39.1); MEAN CORPUSCULAR HEMOGLOBIN 20.1 pg (28-32); MEAN CORPUSCULAR HGB CONC 30.9 g/dL (31-35); MEAN CORPUSCULAR VOLUME 65.1 fL (81-99); MONOCYTES % 7.2 % (4.4-11.3); NEUTROPHILS % 58.9 % (38.7-80.0); PLATELET COUNT 270 x10e3/uL (140-360); RED BLOOD COUNT 6.07 x10e6/uL (4.3-5.7)
[2020-02-01 05:55] LABS: ALANINE AMINOTRANSFERASE 79 IU/L (0-55); ALBUMIN 4.3 g/dL (3.5-5.0); ALBUMIN/GLOBULIN RATIO 1.1 (0.8-2.0); ALKALINE PHOSPHATASE 51 IU/L (40-150); ANION GAP 12.3 mmol/L (8-16); BLOOD UREA NITROGEN 16 mg/dL (7-26); BUN/CREATININE RATIO 18 (6-25); CALCIUM 9.3 mg/dL (8.4-10.2); CARBON DIOXIDE 23 mmol/L (22-29); CHLORIDE 105 mmol/L (98-107); CREATININE, SERUM 0.89 mg/dL (0.72-1.25); EST GLOMERULAR FILTRATION RATE > 60 ML/MIN (60-); GLUCOSE 115 mg/dL (74-118); MAGNESIUM 2.2 MG/DL (1.3-2.1); POTASSIUM 4.3 mmol/L (3.5-5.1); SODIUM 136 mmol/L (136-145)
[2020-02-01] MEDS: PANTOPRAZOLE SOD 40 MG TABEC PO SCH ×2 (07:30→16:30)
[2020-02-01] MEDS: ASPIRIN 81 MG CHEW TAB PO ONE (07:30)
[2020-02-01 08:00] LABS: CREATINE KINASE 101 IU/L (30-200)
[2020-02-01] MEDS ORDERED: METHYLPREDNISOLONE SOD SUCC 40 MG/ML VIAL 1ML IV NR (08:30)
--- NOTE | 2020-02-01 08:39 | Consultation ---
DATE OF CONSULTATION: Pulmonary Critical Care Consultation CHIEF COMPLAINT: Dyspnea, cough, and hemoptysis. HISTORY OF PRESENT ILLNESS: The patient is a 69-year-old man. He has a history of atrial fibrillation. He is treated with Eliquis through a steam roller operator at [facility]. He also has a history of chronic obstructive pulmonary disease. He uses a maintenance inhaler at home as well as a rescue inhaler. Over the past several weeks, he has noted increased cough and congestion. He notes some dyspnea and chest tightness. He had some hemoptysis on two separate occasions in the morning. There was a small amount of blood. He denies any fevers. PAST SURGICAL HISTORY: 1. Status post cholecystectomy. 2. Status post pacemaker. 3. Status post cochlear implants. 4. Status post PTCA. 5. Status post stomach stapling. PAST MEDICAL HISTORY: 1. Atrial fibrillation. 2. Benign prostatic hypertrophy. 3. History of fatty liver. 4. COPD. FAMILY HISTORY: There is a history of lung cancer and asbestosis in the father. Mother also had asthma. SOCIAL HISTORY: He quit smoking 25 years ago. He served in [employer]. He did have malaria when he was in [place]. He denies any recent travel. ALLERGIES: THE PATIENT HAS NO DRUG ALLERGIES. HE IS ALLERGIC TO SHELLFISH. REVIEW OF SYSTEMS: He has no headache or fevers. He is not having any neck pain or sore throat. He has no gland swelling. He did not complain of chest pain. He does have some dyspnea. He has some cough and some chest tightness. He has no abdominal pain. He has no nausea or vomiting. He has no leg edema. PHYSICAL EXAMINATION: VITAL SIGNS: The patient is afebrile. The blood pressure is 113/79, saturation is 97% with a pulse of 66 and blood pressure 113/80. Respiratory rate is 18. HEENT: Shows no facial swelling or erythema. LYMPHATIC: Shows no submandibular, cervical, or supraclavicular adenopathy. CARDIAC: Reveals a regular rate and rhythm with normal S1 and S2. LUNGS: Auscultation of lungs reveals prolonged expiratory phase bilaterally with a few wheezes. ABDOMEN: There is no abdominal pain. He has no tenderness or rebound. EXTREMITIES: There is no leg swelling. NEUROLOGICAL: Shows no focal abnormalities. LABORATORY DATA: White blood cell count is 13.5 and hemoglobin is 12.2. The platelet count is 270. The BUN to creatinine ratio is normal. The other electrolytes are within normal limits. Urinalysis is normal. RADIOGRAPHIC DATA: Chest x-ray shows no active disease. IMPRESSION: 1. Chronic obstructive pulmonary disease with acute exacerbation. 2. Mild hemoptysis with two separate episodes of blood. 3. Chronic atrial fibrillation, requiring anticoagulation. 4. Mild transaminitis. 5. Coronary artery disease with a prior stent placement. PLAN: 1. The patient will receive Solu-Medrol x1 along with IV antibiotics and bronchodilators. 2. CT scan of the chest because of hemoptysis. The patient is allergic to contrast, so we will need to do the CT of the chest without contrast. 3. Continue Eliquis. 4. Continue current cardiac regimen. Macro A Pantoja MD LMH/MODL /[id number]
[2020-02-01] MEDS ORDERED: TAMSULOSIN HCL 0.4 MG CAP PO SCH ×2 (09:00→21:00)
[2020-02-01] MEDS: OMEGA 3 POLYUNSAT FATTY ACIDS 1000 MG SOFTGEL PO SCH (09:00)
[2020-02-01] MEDS: METOPROLOL SUCCINATE 25 MG TAB XL PO SCH ×2 (09:00→16:54)
[2020-02-01] MEDS: MULTIVITAMINS/MINERALS TAB PO SCH (09:00)
[2020-02-01] MEDS: FERROUS SULFATE 325 MG TAB PO SCH (09:00)
[2020-02-01] MEDS: MINERAL OIL/PETROLAT/GLYCERI 2OZ CRM TOP SCH ×4 (09:00→23:21)
--- NOTE | 2020-02-01 09:25 | Diagnostic Imaging Report ---
EXAMINATION: CT scan of the chest without contrast. TECHNIQUE: Helical CT images of the chest were performed from the lung apices to the level of the adrenal glands. No intravenous contrast was administered Coronal and sagittal reformatted images were obtained.Dose modulation, iterative reconstruction, and/or weight based adjustment of the mA/kV was utilized to reduce the radiation dose to as low as reasonably achievable. COMPARISON: None. CLINICAL HISTORY:Hemoptysis DISCUSSION: ABSENCE OF INTRAVENOUS CONTRAST DECREASES SENSITIVITY FOR DETECTION OF FOCAL LESIONS AND VASCULAR PATHOLOGY. LINES/TUBES: 2-lead cardiac device LUNGS AND AIRWAYS: Subpleural reticulations most prominent in the lower lungs . No honeycombing. No consolidations. No concerning masses. Mild scattered bronchiectasis most prominent in the lingula and posterior lower lobes. PLEURA: No pneumothorax or pleural effusions. HEART AND MEDIASTINUM: The thyroid gland is normal. Coronary artery calcifications. LYMPH NODES: There is no mediastinal, hilar or axillary lymphadenopathy. ABDOMEN: Limited contrast-enhanced views of the upper abdomen show no abnormality within the visualized liver, spleen, pancreas, or kidneys. The adrenal glands are normal. BONES AND SOFT TISSUES: No acute bony abnormalities. IMPRESSION: Mild nonspecific interstitial lung disease with subpleural reticulations. Signed by: Dr. Home Lambert M.D. on 02/02/2020 4:54 PM
[2020-02-01] MEDS: AZITHROMYCIN 500MG/NS 250 ML 250 ML IV SCH (16:30)
--- NOTE | 2020-02-01 18:47 | NUR ---
PT RESTING ON BED BED SIDE REPORT GIVEN TO ONCOMING NURSE
--- NOTE | 2020-02-01 19:00 | NUR ---
Bed side report received from day RN. Pt is alert and oriented x3. Respirations are even and unlabored. Tele on. Denies pain. No cough. 20gSL in left hand. Voiding pr bathroom. Call light within reach. Bed locked and bed in low position. Non skid socks at bedside. pt verbalized missing his therapy dog at home.
[2020-02-01] MEDS: SIMVASTATIN 20 MG TAB PO SCH (20:42)
[2020-02-01] MEDS: SERTRALINE HCL 100 MG TAB PO SCH (20:42)
[2020-02-01] MEDS: CEFTRIAXONE SOD 1 GM/NS 50 ML 50 ML IV SCH (20:43)
[2020-02-01] MEDS: ZOLPIDEM TARTRATE 10 MG TAB PO PRN (21:40)
[2020-02-02] VITALS: BP 134/63
[2020-02-02] MEDS: ALBUTEROL/IPRATROPIUM 3 ML NEB NEB SCH ×3 (01:00→07:30)
[2020-02-02 04:00] VITALS: BP 119/72
[2020-02-02 05:33] LABS: BASOPHILS % 0.3 % (0.0-1.0); EOSINOPHILS # (AUTO) 0.1 (0.0-0.4); EOSINOPHILS % 0.5 % (0.0-6.0); HEMOGLOBIN 10.5 g/dL (14.0-18.0); LYMPHOCYTES % 19.6 % (18.0-39.1); MEAN CORPUSCULAR HEMOGLOBIN 20.3 pg (28-32); MEAN CORPUSCULAR HGB CONC 30.9 g/dL (31-35); MEAN CORPUSCULAR VOLUME 65.9 fL (81-99); MONOCYTES # (AUTO) 1.2 (0.2-0.8); MONOCYTES % 7.8 % (4.4-11.3); NEUTROPHILS # (AUTO) 10.8 (2.1-6.9); NEUTROPHILS % 71.1 % (38.7-80.0); PLATELET COUNT 207 x10e3/uL (140-360); RED BLOOD COUNT 5.16 x10e6/uL (4.3-5.7); RED CELL DISTRIBUTION WIDTH 18.5 % (11.7-14.4)
[2020-02-02 05:52] LABS: ALANINE AMINOTRANSFERASE 59 IU/L (0-55); ALBUMIN 3.8 g/dL (3.5-5.0); ALBUMIN/GLOBULIN RATIO 1.1 (0.8-2.0); ALKALINE PHOSPHATASE 46 IU/L (40-150); ANION GAP 11.9 mmol/L (8-16); BLOOD UREA NITROGEN 11 mg/dL (7-26); BUN/CREATININE RATIO 14 (6-25); CALCIUM 8.9 mg/dL (8.4-10.2); CARBON DIOXIDE 24 mmol/L (22-29); CHLORIDE 107 mmol/L (98-107); CREATININE, SERUM 0.78 mg/dL (0.72-1.25); EST GLOMERULAR FILTRATION RATE > 60 ML/MIN (60-); GLUCOSE 122 mg/dL (74-118); POTASSIUM 3.9 mmol/L (3.5-5.1); SODIUM 139 mmol/L (136-145)
--- NOTE | 2020-02-02 07:00 | NUR ---
BEDSIDE SHIFT REPORT RECEIVED FROM ENTRY LEVEL SOFTWARE DEVELOPER RN; PT IN STABLE CONDITION.
[2020-02-02 07:47] VITALS: BP 119/72
[2020-02-02 07:51] VITALS: BP 142/78
--- NOTE | 2020-02-02 08:54 | Progress Note ---
DATE: SUBJECTIVE: The patient feels better. The patient has less dyspnea and less cough. He is not having fever. He has no further hemoptysis. PHYSICAL EXAMINATION: VITAL SIGNS: The patient is afebrile. Blood pressure is 142/78, saturation is 99%, pulse is 69, respiratory rate is 18. HEENT: Shows no facial swelling or erythema. CARDIAC: Reveals regular rate and rhythm with a normal S1 and S2. LUNGS: Auscultation of lungs reveals clear breath sounds bilaterally. There is no wheezing. ABDOMEN: Soft and nontender. There is no rebound or guarding. EXTREMITIES: Show no leg edema or calf tenderness. There is no cyanosis or clubbing. SKIN: Shows no rashes. NEUROLOGICAL: Shows no focal abnormalities. RADIOGRAPHIC DATA: CT scan of the chest shows nonspecific interstitial lung disease with some subpleural reticulations. The interstitial changes appear mild. IMPRESSION: 1. Chronic obstructive pulmonary disease with acute exacerbation. 2. Hemoptysis related to anticoagulation. 3. Chronic atrial fibrillation. 4. Mild interstitial lung disease. 5. Coronary artery disease. PLAN: 1. The patient should continue his prior inhalers as an outpatient. 2. He should restart Eliquis. 3. Complete oral antibiotics as an outpatient. 4. Low-dose prednisone for 5 days. 5. Follow up with established physicians at [facility] after discharge. MD MIQUEL Serrano/BENITEZ /[id number]
[2020-02-02] MEDS: ASPIRIN 81 MG CHEW TAB PO ONE (09:36)
[2020-02-02] MEDS: OMEGA 3 POLYUNSAT FATTY ACIDS 1000 MG SOFTGEL PO SCH (09:41)
[2020-02-02] MEDS: FERROUS SULFATE 325 MG TAB PO SCH (09:41)
[2020-02-02] MEDS: MULTIVITAMINS/MINERALS TAB PO SCH (09:41)
[2020-02-02] MEDS: PANTOPRAZOLE SOD 40 MG TABEC PO SCH (09:41)
[2020-02-02] MEDS: METOPROLOL SUCCINATE 25 MG TAB XL PO SCH (09:42)
[2020-02-02] MEDS: MINERAL OIL/PETROLAT/GLYCERI 2OZ CRM TOP SCH (09:43)
[2020-02-02] MEDS ORDERED: AZITHROMYCIN500 MG PO (10:38)
[2020-02-02] MEDS ORDERED: CEFUROXIME250 MG PO (10:38)
[2020-02-02] MEDS ORDERED: PREDNISONE20 MG PO (10:38)
--- NOTE | 2020-02-02 10:45 | NUR ---
IMM letter delivered and explained to pt and family at bedside. They verbalized understanding. Pt stated he was ready to go home. Signed copy placed in chart. Copy to pt.
[2020-02-02 11:04] VITALS: BP 126/86
[2020-02-02] MEDS: AZITHROMYCIN 500MG/NS 250 ML 250 ML IV SCH (11:39)
--- NOTE | 2020-02-02 12:36 | NUR ---
Discontinuing PT services since patient is Mod I in functional mobility.Thank you. Addendum: 02/02/20 at 1237 by Beltran lambert PT Amended: Links added.
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
== END 2020-02-02 14:36 | disposition home or self-care (01) | DRG 202 ==
LOC: FSED 17:36 → ERHOLD 19:39 → MED/SURG2 21:39
PROVIDERS: ADMIT Internal Medicine; ATTEND Internal Medicine
DX: J20.9 Acute bronchitis, unspecified (principal); K92.0 Hematemesis; I48.20 Chronic atrial fibrillation, unspecified; J84.9 Interstitial pulmonary disease, unspecified; R74.0 Nonspecific elevation of levels of transaminase and lactic acid dehydrogenase [LDH]; F10.21 Alcohol dependence, in remission; F19.21 Other psychoactive substance dependence, in remission; F43.10 Post-traumatic stress disorder, unspecified; F41.9 Anxiety disorder, unspecified; N40.0 Benign prostatic hyperplasia without lower urinary tract symptoms; I25.10 Atherosclerotic heart disease of native coronary artery without angina pectoris; Z95.5 Presence of coronary angioplasty implant and graft; K76.0 Fatty (change of) liver, not elsewhere classified; J44.9 Chronic obstructive pulmonary disease, unspecified; Z95.0 Presence of cardiac pacemaker
CPT/HCPCS: 36415; 71045; 71250; 80053; 80061; 81001; 82550; 82553; 83036; 83735; 84100; 84443; 84484; 85025; 87040; 93005; 93306; 94640; 99284; J0456; J0696; J2920; J7050

== ENCOUNTER 2020-02-16 18:02 | Emergency (ER) | payer MEDICARE ==
[~2020-02-16] VITALS: Ht 188 cm; Wt 114.3 kg
[~2020-02-16 18:02] MED LIST changes: +AMBIEN10 MG PO; +AZITHROMYCIN500 MG PO; +CEFUROXIME250 MG PO; +PREDNISONE20 MG PO
[2020-02-16] MEDS ORDERED: CYCLOBENZAPRINE HCL 10 MG TAB PO STA (18:54)
[2020-02-16] MEDS ORDERED: KETOROLAC TROMETHAMINE 60 MG/2 ML VIAL IM ONE (19:00)
[2020-02-16] MEDS ORDERED: CYCLOBENZAPRINE HCL 10 MG TAB ONE (19:02)
[2020-02-16] MEDS ORDERED: KETOROLAC TROMETHAMINE 60 MG/2 ML VIAL ONE (19:02)
--- NOTE | 2020-02-16 19:38 | Diagnostic Imaging Report ---
RIGHT SHOULDER X-RAY - 2 VIEWS HISTORY: ^pain/trauma ^[id number] ^[id number] COMPARISON: CT chest 02/01/2020 and chest radiograph 01/30/2020 FINDINGS: TUBES AND LINES: Partially visualized pacemaker leads. Bones: No acute displaced fracture. Remote posttraumatic deformity of the distal right clavicle, better seen on today's exam. Osseous alignment is within normal limits. Joints: Mild degenerative changes of the glenohumeral joint. Soft tissues: The soft tissues appear unremarkable. IMPRESSION: No acute radiographic abnormality. Remote posttraumatic deformity of the right clavicle. Signed by: Dr. Kamila Youssef M.D. on 02/16/2020 7:35 PM
[2020-02-16] MEDS ORDERED: CYCLOBENZAPRINE10 MG PO (20:01)
[2020-02-16] MEDS ORDERED: PREDNISONE20 MG PO (20:01)
== END 2020-02-16 20:35 | disposition home or self-care (01) ==
LOC: FSED 18:02
DX: S43.401A Unspecified sprain of right shoulder joint, initial encounter (principal); X50.0XXA Overexertion from strenuous movement or load, initial encounter; Y92.008 Other place in unspecified non-institutional (private) residence as the place of occurrence of the external cause; I25.10 Atherosclerotic heart disease of native coronary artery without angina pectoris; H91.93 Unspecified hearing loss, bilateral; Z95.810 Presence of automatic (implantable) cardiac defibrillator; Z95.5 Presence of coronary angioplasty implant and graft
CPT/HCPCS: 73030; 99283; J1885

== ENCOUNTER 2021-02-10 16:37 | Emergency (ER) | payer MEDICARE ==
[~2021-02-10] VITALS: Ht 188 cm; Wt 114.3 kg
[~2021-02-10 16:37] MED LIST changes: +CYCLOBENZAPRINE10 MG PO
[2021-02-10] MEDS ORDERED: ASPIRIN 81 MG CHEW TAB PO ONE (17:15)
[2021-02-10 17:25] LABS: BASOPHILS # (AUTO) 0.1 (0.0-0.1); BASOPHILS % 1.1 % (0.0-1.0); EOSINOPHILS # (AUTO) 0.5 (0.0-0.4); EOSINOPHILS % 4.7 % (0.0-6.0); HEMATOCRIT 35.4 % (38.2-49.6); HEMOGLOBIN 11.2 g/dL (14.0-18.0); LYMPHOCYTES # (AUTO) 3.5 (1.0-3.2); LYMPHOCYTES % 30.7 % (18.0-39.1); MEAN CORPUSCULAR HEMOGLOBIN 20.8 pg (28-32); MEAN CORPUSCULAR HGB CONC 31.6 g/dL (31-35); MEAN CORPUSCULAR VOLUME 65.7 fL (81-99); MONOCYTES # (AUTO) 0.8 (0.2-0.8); MONOCYTES % 7.1 % (4.4-11.3); NEUTROPHILS # (AUTO) 6.4 (2.1-6.9); PLATELET COUNT 242 x10e3/uL (140-360); RED BLOOD COUNT 5.39 x10e6/uL (4.3-5.7); RED CELL DISTRIBUTION WIDTH 17.9 % (11.7-14.4)
[2021-02-10 17:34] LABS: INR 0.99; PROTHROMBIN TIME 13.7 seconds (11.9-14.5)
[2021-02-10 17:35] LABS: PARTIAL THROMBOPLASTIN TIME 31.1 seconds (23.8-35.5)
[2021-02-10 17:41] LABS: ALANINE AMINOTRANSFERASE 75 IU/L (0-55); ALBUMIN 4.2 g/dL (3.5-5.0); ALBUMIN/GLOBULIN RATIO 1.1 (0.8-2.0); ALKALINE PHOSPHATASE 62 IU/L (40-150); ANION GAP 13.3 mmol/L (8-16); BLOOD UREA NITROGEN 18 mg/dL (7-26); BUN/CREATININE RATIO 17 (6-25); CARBON DIOXIDE 25 mmol/L (22-29); CHLORIDE 107 mmol/L (98-107); CLARITY,URINE CLEAR (CLEAR); COLOR,URINE AMBER (YELLOW); CREATINE KINASE 255 IU/L (30-200); CREATININE, SERUM 1.04 mg/dL (0.72-1.25); EST GLOMERULAR FILTRATION RATE > 60 ML/MIN (60-); GLUCOSE 109 mg/dL (74-118); KETONES,URINE TRACE (NEGATIVE); LEUKOCYTE ESTERASE ,URINE NEGATIVE (NEGATIVE); NITRITE,URINE NEGATIVE (NEGATIVE); POTASSIUM 4.3 mmol/L (3.5-5.1); PROTEIN,URINE DIPSTICK NEGATIVE (NEGATIVE); SODIUM 141 mmol/L (136-145); URINE UROBILINOGEN 1 mg/dL (0.2 - 1)
[2021-02-10 17:51] LABS: BACTERIA,URINE RARE /HPF
[2021-02-10 19:16] LABS: HYPOCHROMASIA MODERATE; PLATELET ESTIMATE ADEQUATE; PLATELET MORPHOLOGY COMMENT NORMAL; POIKILOCYTOSIS SLIG
== END 2021-02-10 21:02 | disposition home or self-care (01) ==
LOC: ER 18:06
DX: J06.9 Acute upper respiratory infection, unspecified (principal); I10 Essential (primary) hypertension; I25.10 Atherosclerotic heart disease of native coronary artery without angina pectoris; Z95.5 Presence of coronary angioplasty implant and graft; Z95.810 Presence of automatic (implantable) cardiac defibrillator; Z91.013 Allergy to seafood
CPT/HCPCS: 36415; 71045; 80053; 81001; 82550; 82553; 83880; 84484; 85025; 85610; 85730; 99284